=== PATIENT | male | born 2000 | race Caucasian/White ===

== ENCOUNTER 2022-04-17 22:56 | Emergency (ER) | payer SELFPAY ==
--- NOTE | 2022-04-17 23:28 | NUR ---
CALLED PT IN THE WAITING ROOM AND OUTSIDE, NO RESPONSE.
--- NOTE | 2022-04-17 23:55 | NUR ---
CALLED PT AGAIN IN WAITING ROOM AND OUTSIDE, NO RESPONSE. PT LWBS BY ER PHYSICIAN.
== END 2022-04-17 23:56 | disposition left against medical advice (07) ==
LOC: ER 23:06
DX: Z53.21 Procedure and treatment not carried out due to patient leaving prior to being seen by health care provider (principal)